=== PATIENT | male | born 1975 | race Caucasian/White ===

== ENCOUNTER 2017-02-20 16:24 | Emergency (ER) | payer BC ==
[~2017-02-20] VITALS: Ht 175.3 cm; Wt 106.6 kg
[~2017-02-20 16:24] MED LIST: ALBUAER19 INH; ATEN-174 PO; KLN5 PO; LEVO150T9 PO; PRED20TA2 PO; PRLSR20 PO
[2017-02-20 16:30] VITALS: TEMP 36.6; Ht 175.3 cm; Wt 106.6 kg
[2017-02-20] MEDS ORDERED: SODIUM CHLORIDE 0.9% 1000ML 1,000 ML IV STA (17:13)
[2017-02-20] MEDS ORDERED: MoRPHine SULFATE 10 MG/ML CARP/VIAL IV STA (17:13)
[2017-02-20] MEDS ORDERED: ONDANSETRON INJ 2 MG/ML 2 ML VIAL IV STA (17:13)
[2017-02-20] MEDS ORDERED: LEVO175T3 PO (17:25)
[2017-02-20] MEDS ORDERED: OPTIRAY 320 IV PRN (17:30)
[2017-02-20 18:02] LABS: BASO % 0.2 %; BASO ABS # 0.02 K/uL (0-0.2); COMPLETE YES; EOS % 1.8 %; HEMATOCRIT 50.4 % (42-52); IG% 0.5 %; LYMPH % 22.8 %; LYMPH ABS # 2.02 K/uL (1.2-3.4); MEAN CELL VOLUME 88.6 fL (80-100); MEAN CORPUSCULAR HEMOGLOBIN 30.1 pg (25-34); MEAN CORPUSCULAR HGB CONC 33.9 g/dl (32-36); MEAN PLATELET VOLUME 11.8 fL (7.4-10.4); MONO % 4.4 %; NEUT % 70.3 %; PLATELET COUNT 154 K/uL (130-400); RED BLOOD COUNT 5.69 M/uL (4.7-6.1); WHITE BLOOD COUNT 8.85 K/uL (4.8-10.8)
[2017-02-20] MEDS ORDERED: MoRPHine SULFATE 4 MG/ML 1 ML CARP\\VIAL ONE (18:06)
[2017-02-20] MEDS ORDERED: MoRPHine SULFATE 2 MG/ML CARP ONE (18:06)
[2017-02-20 18:20] LABS: ALT/SGPT 57 U/L (12-78); AST/SGOT 41 U/L (15-37); BLOOD UREA NITROGEN 13 mg/dl (7-18); CALCIUM 8.8 mg/dl (8.5-10.1); CARBON DIOXIDE 25 mmol/L (21-32); CHLORIDE 103 mmol/L (98-107); GLUCOSE 114 mg/dl (70-99); POTASSIUM 3.6 mmol/L (3.5-5.1); SODIUM 136 mmol/L (136-145)
[2017-02-20 18:23] LABS: ALKALINE PHOSPHATASE 90 U/L (45-117)
[2017-02-20 18:39] LABS: URINE APPEARANCE CLEAR (CLEAR); URINE BILIRUBIN NEG (NEG); URINE COLOR YELLOW; URINE NITRITE NEG (NEG); URINE SPECIFIC GRAVITY 1.015 (1.000-1.030); UROBILINOGEN NEG (NEG)
[2017-02-20 18:48] LABS: MANUAL MICROSCOPIC REQUIRED? NO; REVIEW REQ? NO
--- NOTE | 2017-02-20 19:48 | EMERGENCY ROOM VISIT NOTE ---
History First contact with patient: 17:01 Chief Complaint: ABDOMINAL PAIN Stated Complaint: APPENDIX PAIN Nursing Triage Summary: RLQ abdominal pain for 2 days also c/o nausea. Seen PCP sent here. History of Present Illness The patient is a 41 year old male who presents to the Emergency Room with complaints of right lower abdominal pain that started early yesterday morning. He describes the pain as a constant dull ache with intermittent stabbing pains, worse with walking and moving around, better with rest, currently 5/10 but up to 8/10 at its worst. Associated nausea, no vomiting, no fevers or chills, and he reports a poor appetite today. He saw his PCP today who sent him to the ER to evaluate for appendicitis. Patient has no history of abdominal surgeries in the past. He denies any chest pain, shortness of breath, back pain, diarrhea or constipation, blood in stool, dysuria or urinary frequency, hematuria, testicular pain or swelling, or rash. Patient does note that he was at [employer] the day before his pain started, and states he did ride a lot of roller coasters that "took me around a lot." He denies any falls or direct trauma to his abdomen. Review of Systems A complete 10 point review of systems was reviewed with the patient with pertinent positives and negatives as per history of present illness. All else were negative. Past Medical/Surgical History Medical Problems: (1) Bronchitis (2) Hypertension Family History FH: HTN (hypertension) Social History Smoking Status: Current Every Day Smoker Alcohol Use: occasionally Drug Use: none Marital Status: Housing Status: lives with family Occupation Status: employed Current/Historical Medications Scheduled Levothyroxine Sodium (Levothyroxine Sodium), 175 MCG PO DAILY Omeprazole (Prilosec), 20 MG PO DAILY Allergies Coded Allergies: Sulfa Antibiotics (Verified Allergy, Unknown, HIVES, 05/16/15) Physical Exam Vital Signs Date Time Temp Pulse Resp B/P (MAP) Pulse Ox O2 Delivery O2 Flow Rate FiO2 02/20/17 21:17 65 20 140/97 98 Room Air 02/20/17 20:06 75 18 117/85 98 Room Air 02/20/17 18:24 72 02/20/17 18:12 69 20 147/105 95 Room Air 02/20/17 16:30 36.6 85 16 136/88 98 Room Air Physical Exam CONSTITUTIONAL: No acute distress. Well appearing and well nourished. Alert and oriented X 4 with normal affect. HEENT: Normocephalic, atraumatic. Pupils equal, round and reactive to light, EOMI. TMs normal. Pharynx normal. NECK: Supple, full active range of motion without discomfort. RESPIRATORY: Clear to auscultation bilaterally with no wheezing, crackles, rhonchi or stridor. Equal expansion bilaterally. CARDIOVASCULAR: Regular rate and rhythm with no murmurs, rubs or gallops. Normal peripheral perfusion. No edema. GASTROINTESTINAL: Moderately tender to palpation in the right lower quadrant, positive rebound tenderness, positive guarding. Soft, nondistended. Bowel sounds present in all quadrants. MUSCULOSKELETAL: Full range of motion of all joints without discomfort. INTEGUMENTARY: No rash or other significant dermatologic conditions noted. NEUROLOGIC: Cranial nerves II-XII grossly intact. No focal neurologic deficits noted. Medical Decision & Procedures ER Provider Diagnostic Interpretation: ABD/PELVIS IV AND ORAL CONT CT DOSE: 742.55 mGy.cm HISTORY: Pain ABDOMINAL PAIN/GI TECHNIQUE: Multiaxial CT images of the abdomen and pelvis were performed following the use of intravenous and oral contrast. A dose lowering technique was utilized adhering to the principles of ALARA. COMPARISON STUDY: 08/20/2013 FINDINGS: The lung bases are clear. The liver, spleen, gallbladder, pancreas, kidneys, and adrenal glands are within normal limits. No bowel wall thickening or obstruction. The pelvic organs are unremarkable. No suspicious lytic or blastic osseous lesions. Mild distention of a loop of small bowel in the left upper abdominal region. No obstructing lesion is identified. This may indicate mild small bowel enteritis IMPRESSION: Mild small bowel enteritis. Normal appendix. Nonobstructive bowel pattern. Laboratory Results 02/20/17 17:48 Red Blood Count 5.69, Mean Corpuscular Volume 88.6, Mean Corpuscular Hemoglobin 30.1, Mean Corpuscular Hemoglobin Concent 33.9, Mean Platelet Volume 11.8, Neutrophils (%) (Auto) 70.3, Lymphocytes (%) (Auto) 22.8, Monocytes (%) (Auto) 4.4, Eosinophils (%) (Auto) 1.8, Basophils (%) (Auto) 0.2, Neutrophils # (Auto) 6.22, Lymphocytes # (Auto) 2.02, Monocytes # (Auto) 0.39, Eosinophils # (Auto) 0.16, Basophils # (Auto) 0.02 02/20/17 17:48 Test 02/20/17 17:48 02/20/17 18:15 White Blood Count 8.85 K/uL (4.8-10.8) Red Blood Count 5.69 M/uL (4.7-6.1) Hemoglobin 17.1 g/dL (14.0-18.0) Hematocrit 50.4 % (42-52) Mean Corpuscular Volume 88.6 fL (80-100) Mean Corpuscular Hemoglobin 30.1 pg (25-34) Mean Corpuscular Hemoglobin Concent 33.9 g/dl (32-36) Platelet Count 154 K/uL (130-400) Mean Platelet Volume 11.8 fL (7.4-10.4) Neutrophils (%) (Auto) 70.3 % Lymphocytes (%) (Auto) 22.8 % Monocytes (%) (Auto) 4.4 % Eosinophils (%) (Auto) 1.8 % Basophils (%) (Auto) 0.2 % Neutrophils # (Auto) 6.22 K/uL (1.4-6.5) Lymphocytes # (Auto) 2.02 K/uL (1.2-3.4) Monocytes # (Auto) 0.39 K/uL (0.11-0.59) Eosinophils # (Auto) 0.16 K/uL (0-0.5) Basophils # (Auto) 0.02 K/uL (0-0.2) RDW Standard Deviation 41.5 fL (36.4-46.3) RDW Coefficient of Variation 12.7 % (11.5-14.5) Immature Granulocyte % (Auto) 0.5 % Immature Granulocyte # (Auto) 0.04 K/uL (0.00-0.02) Anion Gap 8.0 mmol/L (3-11) Est Creatinine Clear Calc Drug Dose 88.2 ml/min Estimated GFR () 77.5 Estimated GFR (Non- 66.8 BUN/Creatinine Ratio 10.0 (10-20) Calcium Level 8.8 mg/dl (8.5-10.1) Total Bilirubin 0.3 mg/dl (0.2-1) Direct Bilirubin < 0.1 mg/dl (0-0.2) Aspartate Amino Transf (AST/SGOT) 41 U/L (15-37) Alanine Aminotransferase (ALT/SGPT) 57 U/L (12-78) Alkaline Phosphatase 90 U/L (45-117) Total Protein 7.8 gm/dl (6.4-8.2) Albumin 4.2 gm/dl (3.4-5.0) Lipase 207 U/L (73-393) Urine Color YELLOW Urine Appearance CLEAR (CLEAR) Urine pH 5.0 (4.5-7.5) Urine Specific Foster 1.015 (1.000-1.030) Urine Protein NEG (NEG) Urine Glucose (UA) NEG (NEG) Urine Ketones NEG (NEG) Urine Occult Blood NEG (NEG) Urine Nitrite NEG (NEG) Urine Bilirubin NEG (NEG) Urine Urobilinogen NEG (NEG) Urine Leukocyte Esterase NEG (NEG) Medications Administered Medications (Trade) Dose Ordered Sig/Nehal Route Start Time Stop Time Status Last Admin Dose Admin Sodium Chloride 1,000 ml @ 999 mls/hr Q1H1M STAT IV 02/20/17 17:13 02/20/17 18:13 DC 02/20/17 18:11 999 MLS/HR Ondansetron HCl (Zofran Inj) 4 mg NOW STAT IV 02/20/17 17:13 02/20/17 17:16 DC 02/20/17 18:11 4 MG Morphine Sulfate (MoRPHine SULFATE INJ) 4 mg STK-MED ONCE .ROUTE 02/20/17 18:06 02/20/17 18:07 DC 02/20/17 18:11 4 MG Morphine Sulfate (MoRPHine SULFATE INJ) 2 mg STK-MED ONCE .ROUTE 02/20/17 18:06 02/20/17 18:07 DC 02/20/17 18:10 2 MG Ketorolac Tromethamine (Toradol Inj) 15 mg NOW STAT IV 02/20/17 20:50 02/20/17 20:52 DC 02/20/17 21:16 15 MG Medical Decision CC: Patient presenting with complaint of right lower abdominal pain Interpretation of Labs: No leukocytosis, no anemia, no significant loculated abnormalities, normal renal function, normal liver enzymes and lipase, no UTI. Differential Diagnosis: Includes, but not limited to appendicitis, mesenteric adenitis, diverticulitis, gastroenteritis, ureteral stone, musculoskeletal strain/sprain, among others. Medication Reconciliation: I attest that I have personally reviewed the patient' s current medication list. Vital signs review: I reviewed the patient's vital signs and interpret them as follows: T: Afebrile; BP: Hypertensive; HR: Within normal limits; RR: Within normal limits; Pulse Ox: Within normal limits on room air. Blood pressure screening: The patient was found to have an elevated blood pressure and was referred to their primary doctor for recheck and further treatment. Summary: Patient was evaluated at bedside, history of physical exam performed. Patient is alert and in no acute distress, resting comfortably in stretcher. Abdomen is pointedly tender in the right lower quadrant to light and deep palpation. Abdomen is otherwise benign. Orders were placed at bedside for labs, UA, IV fluids, morphine to manage pain, CT/abdomen to evaluate for appendicitis. Patient discussed with Dr. Hernandez, who agrees with my assessment and plan. Labs reviewed as above, unremarkable. CT reviewed, negative for appendicitis. It does show a small loop of bowel on the left upper abdomen that may represent an early enteritis, however this does not correlate with patient's symptoms. Patient reassessed multiple times throughout ED stay, he has good pain improvement after IV morphine. On reassessment, patient is able to reproduce his pain with certain twisting movements, and states it feels like a muscle spasm. He suspects he may have pulled something while riding roller coasters 2 days ago. He was given IV Toradol. Patient was instructed on management at home for her musculoskeletal pain, and was encouraged to follow closely with his PCP, he verbalized understanding. Patient was updated on all results and plan for discharge. Patient was discharged home in stable condition and ambulatory. Impression Primary Impression: RLQ abdominal pain Departure Information Dispostion Home / Self-Care Condition GOOD Referrals Fannie Jackson DO (PCP) Patient Instructions ED Abdominal Pain Unkn Cause, [facility] Additional Instructions You have been treated in the Emergency Department your Abdominal Pain. Laboratory results and imaging studies have ruled out any emergent causes for your abdominal pain which would warrant admission or surgery. Apply ice to the area for the next day, then apply heat as needed to help improve comfort and reduce pain and swelling. Ibuprofen 600 mg every 6-8 hours as needed for pain. Drink plenty of water and stay well hydrated. As with any trip to the Emergency Department, you should follow-up with your Primary Care Provider in the next few days from today's visit. Return to the emergency department if your symptoms persist despite treatment plan outlined above or if the following symptoms occur: Fevers, chills, worsening nausea/vomiting, blood in your stool or urine, severe worsening abdominal pain, or any other concerns.
--- NOTE | 2017-02-20 20:06 | DIAGNOSTIC IMAGING REPORT ---
ABD/PELVIS IV AND ORAL CONT CT DOSE: 742.55 mGy.cm HISTORY: Pain ABDOMINAL PAIN/GI TECHNIQUE: Multiaxial CT images of the abdomen and pelvis were performed following the use of intravenous and oral contrast. A dose lowering technique was utilized adhering to the principles of ALARA. COMPARISON STUDY: 08/20/2013 FINDINGS: The lung bases are clear. The liver, spleen, gallbladder, pancreas, kidneys, and adrenal glands are within normal limits. No bowel wall thickening or obstruction. The pelvic organs are unremarkable. No suspicious lytic or blastic osseous lesions. Mild distention of a loop of small bowel in the left upper abdominal region. No obstructing lesion is identified. This may indicate mild small bowel enteritis IMPRESSION: Mild small bowel enteritis. Normal appendix. Nonobstructive bowel pattern. The above report was generated using voice recognition software. It may contain grammatical, syntax or spelling errors. Electronically signed by: Jordon Montgomery M.D. 02/20/2017 8:05 PM Dictated Date/Time: 02/20/2017 8:02 PM
[2017-02-20] MEDS ORDERED: KETOROLAC TROMETHAMINE 30 MG/ML VIAL IV STA (20:50)
[2017-02-20 21:17] VITALS: BP 140/97; PULSE 65; O2SAT 98
== END 2017-02-20 21:20 | disposition home or self-care (01) ==
LOC: C.EDB 16:25
DX: R10.31 Right lower quadrant pain (principal); I10 Essential (primary) hypertension; Z82.49 Family history of ischemic heart disease and other diseases of the circulatory system; F17.210 Nicotine dependence, cigarettes, uncomplicated; Z79.899 Other long term (current) drug therapy

== ENCOUNTER → 2017-09-01 | Outpatient (CLI) | payer BC ==
[~2017-09-01] MED LIST changes: -ALBUAER19 INH; -ATEN-174 PO; -KLN5 PO; -LEVO150T9 PO; +LEVO175T3 PO; -PRED20TA2 PO
[2017-09-01 17:00] LABS: BASO % 0.4 %; BASO ABS # 0.04 K/uL (0-0.2); EOS % 2.4 %; EOS ABS # 0.23 K/uL (0-0.5); HEMATOCRIT 44.2 % (42-52); HEMOGLOBIN 15.1 g/dL (14.0-18.0); IG# 0.11 K/uL (0.00-0.02); LYMPH % 28.2 %; LYMPH ABS # 2.69 K/uL (1.2-3.4); MEAN CELL VOLUME 90.8 fL (80-100); MEAN CORPUSCULAR HGB CONC 34.2 g/dl (32-36); MEAN PLATELET VOLUME 11.3 fL (7.4-10.4); MONO % 5.5 %; MONO ABS # 0.52 K/uL (0.11-0.59); NEUT % 62.3 %; NEUT ABS # 5.95 K/uL (1.4-6.5); PLATELET COUNT 187 K/uL (130-400); RED CELL DISTRIBUTION WIDTH CV 13.3 % (11.5-14.5); RED CELL DISTRIBUTION WIDTH SD 43.9 fL (36.4-46.3); WHITE BLOOD COUNT 9.54 K/uL (4.8-10.8)
[2017-09-01 17:13] LABS: ALBUMIN 3.9 gm/dl (3.4-5.0); ALT/SGPT 84 U/L (12-78); BLOOD UREA NITROGEN 16 mg/dl (7-18); CARBON DIOXIDE 32 mmol/L (21-32); CREATININE 1.46 mg/dl (0.60-1.40); GLUCOSE 80 mg/dl (70-99); POTASSIUM 3.8 mmol/L (3.5-5.1); SODIUM 139 mmol/L (136-145)
[2017-09-01 17:45] LABS: ALKALINE PHOSPHATASE 83 U/L (45-117); AST/SGOT 90 U/L (15-37); TOTAL PROTEIN 7.2 gm/dl (6.4-8.2)
== END | disposition home or self-care (01) ==
LOC: C.LABPBG 15:54
PROVIDERS: ATTEND Family Medicine
DX: I10 Essential (primary) hypertension (principal); M54.5 Low back pain; K92.1 Melena

== ENCOUNTER → 2018-02-01 | Outpatient (CLI) | payer BC ==
[~2018-02-01] MED LIST changes: -LEVO175T3 PO; +LEVO200T6 PO; +LISI20TA3 PO
[2018-02-01 16:51] LABS: BASO % 0.5 %; BASO ABS # 0.04 K/uL (0-0.2); EOS % 1.8 %; EOS ABS # 0.14 K/uL (0-0.5); HEMATOCRIT 45.1 % (42-52); HEMOGLOBIN 15.3 g/dL (14.0-18.0); IG# 0.04 K/uL (0.00-0.02); LYMPH % 27.7 %; LYMPH ABS # 2.11 K/uL (1.2-3.4); MEAN CORPUSCULAR HEMOGLOBIN 30.5 pg (25-34); MEAN CORPUSCULAR HGB CONC 33.9 g/dl (32-36); MEAN PLATELET VOLUME 11.6 fL (7.4-10.4); MONO % 5.8 %; MONO ABS # 0.44 K/uL (0.11-0.59); NEUT % 63.7 %; NEUT ABS # 4.85 K/uL (1.4-6.5); PLATELET COUNT 205 K/uL (130-400); RED CELL DISTRIBUTION WIDTH CV 13.2 % (11.5-14.5); RED CELL DISTRIBUTION WIDTH SD 43.1 fL (36.4-46.3); WHITE BLOOD COUNT 7.62 K/uL (4.8-10.8)
[2018-02-01 17:23] LABS: ALBUMIN 4.5 gm/dl (3.4-5.0); ALKALINE PHOSPHATASE 66 U/L (45-117); ALT/SGPT 98 U/L (12-78); AST/SGOT 150 U/L (15-37); BLOOD UREA NITROGEN 17 mg/dl (7-18); CALCIUM 8.5 mg/dl (8.5-10.1); CARBON DIOXIDE 31 mmol/L (21-32); CHOLESTEROL 291 mg/dl (0-200); CREATININE 1.79 mg/dl (0.60-1.40); GLUCOSE 102 mg/dl (70-99); LDL CHOLESTEROL CALCULATED 219 mg/dl; POTASSIUM 3.9 mmol/L (3.5-5.1); SODIUM 134 mmol/L (136-145); TOTAL PROTEIN 7.7 gm/dl (6.4-8.2)
== END | disposition home or self-care (01) ==
LOC: C.LABPBG 14:27
PROVIDERS: ATTEND Family Medicine
DX: R74.8 Abnormal levels of other serum enzymes (principal); N28.9 Disorder of kidney and ureter, unspecified; E89.0 Postprocedural hypothyroidism; G47.19 Other hypersomnia; R60.9 Edema, unspecified

== ENCOUNTER → 2018-02-19 | Outpatient (CLI) | payer BC ==
--- NOTE | 2018-02-19 12:04 | DIAGNOSTIC IMAGING REPORT ---
ABDOMINAL ULTRASOUND, RIGHT UPPER QUADRANT HISTORY: R74.8 Elevated liver [id number]. COMPARISON: None. FINDINGS: Pancreas: Obscured by overlying bowel gas. Liver: 15.4 cm in length. No hepatic masses. Gallbladder: No gallbladder wall thickening. No gallstones. CBD: 5 mm. Right kidney: No hydronephrosis. IMPRESSION: No significant abnormality identified within the right upper quadrant. The pancreas was obscured by overlying bowel gas. Electronically signed by: Дмитрий Solis M.D. 02/19/2018 12:03 PM Dictated Date/Time: 02/19/2018 12:02 PM
== END | disposition home or self-care (01) ==
LOC: C.ULTR 11:25
PROVIDERS: ATTEND Family Medicine
DX: R74.8 Abnormal levels of other serum enzymes (principal)

== ENCOUNTER → 2018-03-08 | Outpatient (CLI) | payer BC ==
[2018-03-08 17:09] LABS: ALBUMIN 4.1 gm/dl (3.4-5.0); ALKALINE PHOSPHATASE 75 U/L (45-117); ALT/SGPT 46 U/L (12-78); AST/SGOT 32 U/L (15-37); BLOOD UREA NITROGEN 15 mg/dl (7-18); CALCIUM 8.8 mg/dl (8.5-10.1); CARBON DIOXIDE 28 mmol/L (21-32); CREATININE 1.31 mg/dl (0.60-1.40); GLUCOSE 92 mg/dl (70-99); POTASSIUM 3.9 mmol/L (3.5-5.1); SODIUM 138 mmol/L (136-145); TOTAL PROTEIN 7.4 gm/dl (6.4-8.2)
== END | disposition home or self-care (01) ==
LOC: C.LABPBG 14:21
PROVIDERS: ATTEND Family Medicine
DX: N28.9 Disorder of kidney and ureter, unspecified (principal); R74.8 Abnormal levels of other serum enzymes; E89.0 Postprocedural hypothyroidism